=== PATIENT | female | born 1990 | race Caucasian/White ===

== ENCOUNTER → 2019-04-19 13:21 | Outpatient (CLI) | payer OTHER, SELFPAY | DX: Z23 Encounter for immunization (principal) | CPT/HCPCS: 90471; 90686 ==

== ENCOUNTER → 2019-05-20 15:40 | Outpatient (CLI) | payer OTHER, SELFPAY | PROVIDERS: Visit Provider Physician Assistant | DX: R30.0 Dysuria (principal) | CPT/HCPCS: 87086 ==

== ENCOUNTER → 2019-10-05 13:12 | Outpatient (CLI) | payer OTHER, SELFPAY ==
[2019-10-05 14:34] LABS: Add Manual Diff / Slide Review NO; Basophils Absolute Auto 0 /uL (0-100); Basophils Percent Auto 0.4 % (0-2); Eosinophils Absolute Auto 100 /uL (0-450); Eosinophils Percent Auto 1.4 % (2-4); Hematocrit 40.1 % (36-46); Hemoglobin 13.8 g/dL (12.0-16.0); Lymphocytes Absolute Auto 2200 /uL (1100-4500); Mean Corpuscular HGB Conc 34.3 % (30-36); Mean Corpuscular Volume 87.4 fL (80-100); Monocytes Absolute Auto 300 /uL (0-900); Monocytes Percent Auto 4.3 % (3-14); Neutrophils Absolute Auto 3800 /uL (1500-7000); Neutrophils Percent Auto 58.9 % (50-75); Platelet Count 218 X10^3/uL (150-400); Red Blood Cell Count 4.59 X10^6/uL (4.0-5.2); Red Cell Distribution Width 12.8 % (11.6-14.8); White Blood Cell Count 6.4 X10^3/uL (4.5-11.0)
[2019-10-05 14:59] LABS: Alanine Aminotransferase 28 IU/L (<35); Albumin 4.6 g/dL (3.5-5.0); Albumin Globulin Ratio 1.2 (1.0-2.8); Alkaline Phosphatase 75 U/L (38-126); Aspartate Aminotransferase 28 IU/L (14-36); BUN Creatinine Ratio 18.2 (6-22); Bilirubin Total 0.5 mg/dL (0.2-1.3); Blood Urea Nitrogen 14 mg/dL (7-17); Calcium 9.7 mg/dL (8.4-10.2); Carbon Dioxide 28 mmol/L (22-32); Chloride 102 mmol/L (98-107); Cholesterol 275 mg/dL (140-199); Estimated Glomerular Filt Rate > 60.0 mL/min (>60); Globulin 3.8 g/dL (1.7-4.1); Glucose 94 mg/dL (70-100); HDL Cholesterol 43 mg/dL (40-60); HEMOLYSIS < 15 (0-50); LDL Cholesterol Calculated 195 mg/dL (<100); Potassium 4.3 mmol/L (3.4-5.1); Sodium 138 mmol/L (137-145); Total Protein 8.4 g/dL (6.3-8.2); Triglycerides 187 mg/dL (35-150)
[2019-10-05 15:15] LABS: Free T4, Direct Thyroxine 0.88 ng/dL (0.78-2.19)
[2019-10-05 15:29] LABS: Thyroid Stimulating Hormone 2.73 uIU/mL (0.47-4.68)
== END ==
PROVIDERS: PCP Nurse Practitioner; Referring Provider Nurse Practitioner; Visit Provider Nurse Practitioner
DX: Z00.00 Encounter for general adult medical examination without abnormal findings (principal)
CPT/HCPCS: 36415; 80053; 80061; 84439; 84443; 84481; 85025

== ENCOUNTER → 2020-04-12 | Outpatient (CLI) | payer OTHER, SELFPAY | PROVIDERS: PCP Nurse Practitioner; Referring Provider Internal Medicine; Visit Provider Internal Medicine | DX: Z23 Encounter for immunization (principal) | CPT/HCPCS: 90471; 90686 ==

== ENCOUNTER → 2020-05-16 10:32 | Outpatient (CLI) | payer OTHER, SELFPAY ==
--- NOTE | 2020-05-16 10:34 | DI.US.S_ITS ---
LIMITED ULTRASOUND OF LEFT BREAST: 05/16/2020 CLINICAL: Skin changes. No prior exams were available for comparison. Color flow and real-time ultrasound of the left breast inner aspect were performed. Godinez scale images of the real-time examination were reviewed. No significant abnormalities were seen sonographically in the medial left breast in the region of mild erythema. Patient reports decrease in size of the skin changes. IMPRESSION: NEGATIVE There is no sonographic evidence of malignancy in the region of skin changes. Exam findings were conveyed to the patient. Patient is advised to monitor for significant change. Clinical follow-up as needed. If symptoms worsen dermatological consult could be considered. This exam was interpreted at Station ID: [id number]. Electronically Signed By: Ramsey Watts M.D. [facility] [place]/:05/16/2020 12:27:27 letter sent: Clinical Evaluation Ultrasound BI-RADS: 1 Negative
== END ==
PROVIDERS: PCP Nurse Practitioner; Referring Provider Registered Nurse; Visit Provider Registered Nurse
DX: R23.4 Changes in skin texture (principal); Z80.3 Family history of malignant neoplasm of breast
CPT/HCPCS: 76642

== ENCOUNTER → 2020-12-12 13:07 | Outpatient (CLI) | payer OTHER, SELFPAY ==
[2020-12-12 13:37] LABS: UR Morphine/Opiate cutoff 300 Negative (Negative); Ur Creatinine Normal (Normal); Ur Specific Gravity Normal (Normal); Urine Amphetamines Negative (Negative); Urine Barbiturates Negative (Negative); Urine Benzodiazepines Negative (Negative); Urine Cocaine Negative (Negative); Urine MDMA Negative (Negative); Urine Methadone Negative (Negative); Urine Methamphetamines Negative (Negative); Urine Oxycodone Negative (Negative); Urine Phencyclidine Negative (Negative); Urine Tetrahydrocannabinol Negative (Negative); Urine Tricyclic Antidepressant Negative (Negative); Urine pH Normal (Normal)
[2020-12-14 13:48] LABS: QuantiFERON Mitogen Value >10.00 IU/mL (.); QuantiFERON Nil Value <0.00 IU/mL (.); QuantiFERON TB Gold Plus Negative (Negative); QuantiFERON TB1 Ag Value 0.08 IU/mL (.); QuantiFERON TB2 Ag Value 0.15 IU/mL (.)
== END ==
PROVIDERS: PCP Nurse Practitioner; Referring Provider Student in an Organized Health Care Education/Training Program; Visit Provider Student in an Organized Health Care Education/Training Program
DX: Z01.84 Encounter for antibody response examination (principal); Z20.1 Contact with and (suspected) exposure to tuberculosis; Z02.1 Encounter for pre-employment examination
CPT/HCPCS: 36415; 80305; 86480

== ENCOUNTER → 2021-04-22 | Outpatient (CLI) | payer OTHER, SELFPAY | PROVIDERS: PCP Nurse Practitioner; Referring Provider Internal Medicine; Visit Provider Internal Medicine | DX: Z23 Encounter for immunization (principal) | CPT/HCPCS: 90471; 90686 ==

== ENCOUNTER → 2022-02-12 13:00 | Outpatient (CLI) | payer OTHER, SELFPAY ==
[2022-02-12 16:03] LABS: Alanine Aminotransferase 30 IU/L (<35); Albumin 4.5 g/dL (3.5-5.0); Albumin Globulin Ratio 1.3 (1.0-2.8); Alkaline Phosphatase 67 U/L (38-126); Aspartate Aminotransferase 35 IU/L (14-36); BUN Creatinine Ratio 14.8 (6-22); Bilirubin Total 0.8 mg/dL (0.2-1.3); Blood Urea Nitrogen 13 mg/dL (7-17); Calcium 9.1 mg/dL (8.4-10.2); Carbon Dioxide 29 mmol/L (22-32); Chloride 102 mmol/L (98-107); Cholesterol 203 mg/dL (140-199); Estimated Glomerular Filt Rate > 60 mL/min (>60); Globulin 3.6 g/dL (1.7-4.1); Glucose 87 mg/dL (70-100); HDL Cholesterol 44 mg/dL (40-60); HEMOLYSIS < 15 (0-50); LDL Cholesterol Calculated 137 mg/dL (<100); Sodium 139 mmol/L (137-145); Total Protein 8.1 g/dL (6.3-8.2); Triglycerides 108 mg/dL (35-150)
== END ==
PROVIDERS: PCP Nurse Practitioner; Referring Provider Nurse Practitioner; Visit Provider Nurse Practitioner
DX: E78.2 Mixed hyperlipidemia (principal); Z79.899 Other long term (current) drug therapy
CPT/HCPCS: 36415; 80053; 80061

== ENCOUNTER → 2022-05-05 15:41 | Outpatient (CLI) | payer OTHER, SELFPAY | PROVIDERS: PCP Nurse Practitioner; Referring Provider Internal Medicine; Visit Provider Internal Medicine | DX: Z23 Encounter for immunization (principal) | CPT/HCPCS: 90471; 90686 ==

== ENCOUNTER → 2023-01-29 11:03 | Outpatient (CLI) | payer OTHER, SELFPAY ==
[2023-01-29 13:39] LABS: Add Manual Diff / Slide Review NO; Basophils Absolute Auto 0 /uL (0-100); Basophils Percent Auto 0.4 % (0-2); Eosinophils Absolute Auto 100 /uL (0-450); Eosinophils Percent Auto 1.6 % (2-4); Hematocrit 38.2 % (36-46); Hemoglobin 13.2 g/dL (12.0-16.0); Lymphocytes Absolute Auto 2100 /uL (1100-4500); Lymphocytes Percent Auto 32.2 % (25-40); Mean Corpuscular HGB Conc 34.7 % (30-36); Mean Corpuscular Hemoglobin 30.2 PG (26-34); Mean Corpuscular Volume 86.9 fL (80-100); Monocytes Absolute Auto 300 /uL (0-900); Monocytes Percent Auto 4.6 % (3-14); Neutrophils Absolute Auto 4100 /uL (1500-7000); Neutrophils Percent Auto 61.2 % (50-75); Platelet Count 256 X10^3/uL (150-400); Red Blood Cell Count 4.39 X10^6/uL (4.0-5.2); Red Cell Distribution Width 12.7 % (11.6-14.8); White Blood Cell Count 6.7 X10^3/uL (4.5-11.0)
[2023-01-29 13:52] LABS: Alanine Aminotransferase 35 IU/L (<35); Albumin 4.6 g/dL (3.5-5.0); Albumin Globulin Ratio 1.4 (1.0-2.8); Alkaline Phosphatase 73 U/L (38-126); Aspartate Aminotransferase 31 IU/L (14-36); BUN Creatinine Ratio 20.2 (6-22); Bilirubin Total 0.4 mg/dL (0.2-1.3); Blood Urea Nitrogen 19 mg/dL (7-17); Calcium 9.3 mg/dL (8.4-10.2); Carbon Dioxide 25 mmol/L (22-32); Chloride 101 mmol/L (98-107); Cholesterol 227 mg/dL (140-199); Estimated Glomerular Filt Rate > 60 mL/min (>60); Globulin 3.3 g/dL (1.7-4.1); Glucose 90 mg/dL (70-100); HDL Cholesterol 45 mg/dL (40-60); HEMOLYSIS < 15 (0-50); LDL Cholesterol Calculated 152 mg/dL (<100); Potassium 4.2 mmol/L (3.4-5.1); Sodium 137 mmol/L (137-145); Total Protein 7.9 g/dL (6.3-8.2); Triglycerides 152 mg/dL (35-150)
[2023-01-29 13:58] LABS: Free T3, Triiodothyronine Free 4.51 pg/mL (2.77-5.27); Free T4, Direct Thyroxine 0.93 ng/dL (0.78-2.19)
[2023-01-29 14:11] LABS: Thyroid Stimulating Hormone 1.45 uIU/mL (0.47-4.68)
== END ==
PROVIDERS: PCP Nurse Practitioner; Referring Provider Nurse Practitioner; Visit Provider Nurse Practitioner
DX: Z00.00 Encounter for general adult medical examination without abnormal findings (principal); E78.2 Mixed hyperlipidemia; Z83.438 Family history of other disorder of lipoprotein metabolism and other lipidemia
CPT/HCPCS: 36415; 80053; 80061; 84439; 84443; 84481; 85025

== ENCOUNTER → 2023-02-02 11:43 | Outpatient (CLI) | payer OTHER, SELFPAY ==
--- NOTE | 2023-02-02 11:45 | DI.RAD.S_ITS ---
PROCEDURE: XR LUMBAR SPINE 2-3V INDICATIONS: low back/sacral pain TECHNIQUE: 3 views of the lumbar spine were acquired. COMPARISON: None. FINDINGS: Bones: 5 [id number] vertebrae are present. There is normal bony alignment. Mild disc height loss at L5-S1. No vertebral body compression fractures. No suspicious bony lesions. Soft tissues: Overlying bowel gas pattern is normal. No suspicious soft tissue calcifications. IMPRESSION: Mild disc height loss at L5-S1. Otherwise unremarkable study. Dictated by: Shun Cantrell M.D. on 02/02/2023 at 14:17 Approved by: Shun Cantrell M.D. on 02/02/2023 at 14:18
--- NOTE | 2023-02-02 11:45 | DI.RAD.S_ITS ---
PROCEDURE: XR SACRUM COCCYX MIN 2V INDICATIONS: low back/sacral pain TECHNIQUE: 3 views of the sacrum and coccyx acquired. COMPARISON: None. FINDINGS: Bones: No fractures or dislocations. No suspicious bony lesions. Soft tissues: Visualized bowel gas pattern is normal. No suspicious soft tissue densities. IMPRESSION: No acute bony abnormality. Dictated by: Shun Cantrell M.D. on 02/02/2023 at 14:18 Approved by: Shun Cantrell M.D. on 02/02/2023 at 14:18
== END ==
PROVIDERS: PCP Nurse Practitioner; Referring Provider Nurse Practitioner; Visit Provider Nurse Practitioner
DX: M53.3 Sacrococcygeal disorders, not elsewhere classified (principal); M54.50 Low back pain, unspecified
CPT/HCPCS: 72100; 72220

== ENCOUNTER → 2023-04-29 15:37 | Outpatient (CLI) | payer OTHER, SELFPAY | PROVIDERS: PCP Nurse Practitioner; Referring Provider Family Medicine; Visit Provider Family Medicine | DX: Z23 Encounter for immunization (principal) | CPT/HCPCS: 90471; 90686 ==

== ENCOUNTER → 2023-05-06 12:13 | Outpatient (CLI) | payer OTHER, SELFPAY ==
[2023-05-06 13:41] LABS: Alanine Aminotransferase 27 IU/L (<35); Albumin 4.5 g/dL (3.5-5.0); Albumin Globulin Ratio 1.2 (1.0-2.8); Alkaline Phosphatase 59 U/L (38-126); Aspartate Aminotransferase 34 IU/L (14-36); BUN Creatinine Ratio 20.5 (6-22); Bilirubin Total 0.5 mg/dL (0.2-1.3); Blood Urea Nitrogen 15 mg/dL (7-17); Calcium 9.7 mg/dL (8.4-10.2); Carbon Dioxide 28 mmol/L (22-32); Chloride 102 mmol/L (98-107); Cholesterol 289 mg/dL (140-199); Estimated Glomerular Filt Rate > 60 mL/min (>60); Globulin 3.7 g/dL (1.7-4.1); Glucose 89 mg/dL (70-100); HDL Cholesterol 52 mg/dL (40-60); HEMOLYSIS < 15 (0-50); LDL Cholesterol Calculated 186 mg/dL (<100); Potassium 4.3 mmol/L (3.4-5.1); Sodium 137 mmol/L (137-145); Total Protein 8.2 g/dL (6.3-8.2); Triglycerides 257 mg/dL (35-150)
== END ==
PROVIDERS: PCP Nurse Practitioner; Referring Provider Nurse Practitioner; Visit Provider Nurse Practitioner
DX: E78.2 Mixed hyperlipidemia (principal); Z79.899 Other long term (current) drug therapy
CPT/HCPCS: 36415; 80053; 80061

== ENCOUNTER 2023-05-17 03:23 | Emergency (ER) | payer OTHER, SELFPAY ==
[2023-05-17 03:30] VITALS: BP 128/58; PULSE 73; RESP 20; TEMP 37.8; O2SAT 98; BMI 25.8
--- NOTE | 2023-05-17 03:40 | ED.GENADULT ---
HPI - General Adult General Chief complaint: Fever Stated complaint: FEVER/INTENSE HEADACHE Time Seen by Provider: 05/17/23 03:30 Source: patient Mode of arrival: Ambulatory History of Present Illness HPI narrative: 33-year-old otherwise healthy female who is here for evaluation of a headache and fever. No neck pain. No cough. No sore throat. Symptoms have been present for the past 4 days. Has tried home treatments to include fluids and nonsteroidal anti-inflammatories and Tylenol. She is photophobic. Also has sensitivity to sound. Is having nausea but no vomiting. She states that her symptoms were fairly sudden onset 4 days ago. She has no neck pain. Related Data Previous Rx's Medication Instructions Recorded tretinoin 0.1 % topical cream 1 applic topical BEDTIME #45 grams 11/20/21 spironolactone 50 mg tablet 50 mg PO DAILY #90 tabs 12/01/22 cyclobenzaprine 5 mg tablet 5 mg PO TID PRN muscle spasm #30 02/04/23 tabs fluconazole 150 mg tablet 150 mg PO Q3D 2 doses #2 tabs 02/04/23 rosuvastatin 10 mg tablet 10 mg PO DAILY #90 tabs 02/04/23 Allergies Allergy/AdvReac Type Severity Reaction Status Date / Time No Known Drug Allergies Allergy Verified 02/04/23 10:58 Review of Systems Constitutional Constitutional: Reports system reviewed and no additional complaints, except as documented ENT Ears, Nose, Mouth, and Throat: Reports system reviewed and no additional complaints, except as documented Respiratory Respiratory: Reports system reviewed and no additional complaints, except as documented Gastrointestinal Gastrointestinal: Reports system reviewed and no additional complaints, except as documented Integumentary/Breasts Skin/Breast: Reports system reviewed and no additional complaints, except as documented Neurologic Neurologic: Reports system reviewed and no additional complaints, except as documented Allergic/Immunologic Allergic/Immunologic: Reports system reviewed and no additional complaints, except as documented Patient History Medical History (Updated 05/17/23 @ 05:45 by Cedric Dee DO) Family history of hyperlipidemia Family history of premature CAD Unwanted fertility Mixed hyperlipidemia Family History Father Diabetes mellitus History of heart disease Mother History of heart disease Hyperlipidemia Endometrial cancer Grandfather No problems noted. Grandmother History of heart disease Hypertension Grandfather Cancer Grandmother Cancer History of heart disease Hyperlipidemia Hypertension Stroke Social History Smoking Status: Never smoker Smoking Status: Never smoker alcohol intake frequency: a few times a month Substance Use Type: does not use Exam Initial Vital Signs Initial Vital Signs: Vital Signs Temperature 100.1 F H 05/17/23 03:30 Pulse Rate 73 05/17/23 03:30 Respiratory Rate 20 05/17/23 03:30 Blood Pressure 128/58 L 05/17/23 03:30 Pulse Oximetry 98 05/17/23 03:30 Oxygen Delivery Method Room Air 05/17/23 03:30 Const General: healthy appearing HENMT Head: normal to inspection and normocephalic Ears: TM's normal bilaterally Mouth: moist mucous membranes Neck Neck: no meningeal signs Resp Effort & Inspection: normal respiratory effort Cardio Rate: regular rate Neuro General: patient alert, patient awake and moves all extremities Cognition: normal cognition Speech: speech normal Course Orders Ordered: ED Orders 05/17/23 03:43 Basic Metabolic Panel Stat Complete Blood Count AUTO DIFF Stat Covid-19 + FLU A/B + RSV - PCR Stat Test Serum,Qual Stat 05/17/23 04:49 CT head/brain wo con Stat Discontinued Medications Diphenhydramine HCl (Diphenhydramine 50 Mg/Ml Vial) 25 mg IV NOW ONE Stop: 05/17/23 03:40 Last Admin: 05/17/23 03:52 Dose: 25 mg Documented By: SB Sodium Chloride (Normal Saline 0.9%) 1,000 mls @ 1,000 mls/hr IV BOLUS ONE Stop: 05/17/23 04:33 Last Infusion: 05/17/23 04:53 Dose: Infused Documented By: Admin: 05/17/23 03:52 Dose: 1,000 mls/hr Documented By: SB Ketorolac Tromethamine (Ketorolac 30 Mg/Ml Vial) 30 mg IV NOW ONE Stop: 05/17/23 03:40 Last Admin: 05/17/23 03:52 Dose: 30 mg Documented By: SB Methylprednisolone (Methylprednisolone 125 Mg/2 Ml Vial) 125 mg IV NOW ONE Stop: 05/17/23 05:45 Last Admin: 05/17/23 05:55 Dose: 125 mg Documented By: ES Metoclopramide HCl (Metoclopramide 10 Mg/2 Ml Inj) 10 mg IV NOW ONE Stop: 05/17/23 03:40 Last Admin: 05/17/23 03:53 Dose: 10 mg Documented By: JUAN Vital Signs Vital signs: Vital Signs - 8 hr 05/17/23 03:30 05/17/23 03:52 05/17/23 04:53 Temperature 100.1 F H 100.1 F H 99.2 F Pulse Rate 73 Respiratory Rate 20 Blood Pressure 128/58 L Pulse Oximetry 98 Oxygen Delivery Method Room Air 05/17/23 06:08 Temperature 98 F Pulse Rate Respiratory Rate Blood Pressure Pulse Oximetry Oxygen Delivery Method Medical Decision Making Lab Data Lab results reviewed: Yes I reviewed the patient's lab results. 05/17/23 03:43 05/17/23 03:43 Labs: Lab Results 05/17/23 Range/Units 03:43 WBC 4.7 (4.5-11.0) X10^3/uL RBC 3.71 L (4.0-5.2) X10^6/uL Hgb 11.6 L (12.0-16.0) g/dL Hct 32.5 L (36-46) % MCV 87.7 (80-100) fL MCH 31.2 (26-34) PG MCHC 35.6 (30-36) % RDW 13.0 (11.6-14.8) % Plt Count 167 (150-400) X10^3/uL Neut % (Auto) 67.2 (50-75) % Lymph % (Auto) 20.9 L (25-40) % Montgomery % (Auto) 8.9 (3-14) % Eos % (Auto) 2.3 (2-4) % Baso % (Auto) 0.7 (0-2) % Neut # (Auto) 3200 (3697-1752) /uL Lymph # (Auto) 1000 L (6552-6988) /uL Montgomery # (Auto) 400 (0-900) /uL Eos # (Auto) 100 (0-450) /uL Baso # (Auto) 0 (0-100) /uL Sodium 135 L (137-145) mmol/L Potassium 3.9 (3.4-5.1) mmol/L Chloride 105 (98-107) mmol/L Carbon Dioxide 24 (22-32) mmol/L BUN 11 (7-17) mg/dL Creatinine 0.68 (0.52-1.04) mg/dL Estimated GFR > 60 (>60) mL/min BUN/Creatinine Ratio 16.2 (6-22) Glucose 123 H (70-100) mg/dL Calcium 8.4 (8.4-10.2) mg/dL Serum , Qual Negative (Negative) SARS-CoV-2 (PCR) Negative (Negative) Influenza A (RT-PCR) Flu a negative (NEGATIVE) Influenza B (RT-PCR) Flu b negative (NEGATIVE) RSV (PCR) Negative (Negative) Imaging Data CT scan - head: Radiologist's Impression: No acute intracranial abnormality. Left maxillary sinus disease MDM Narrative Medical decision making narrative: Patient did have a fever. No nuchal rigidity. Her labs are unremarkable. Does not have leukocytosis. Flu/COVID/RSV negative. Did have a fairly sudden onset of a headache 4 days ago. There is somewhat of a mixed picture given the sudden onset of the headache in the photophobia in the lack of a history of headaches would be concerning for subarachnoid hemorrhage however subarachnoid hemorrhage would not necessarily produce a fever. This is also in the setting where the patient does have a negative COVID and flu which if were positive would certainly explain her symptoms. I do feel that head CT is warranted evaluate for subarachnoid which was subsequently negative. Given her presentation today I do feel that a subarachnoid hemorrhage is unlikely specifically given the fever that she is having. We discussed lumbar puncture however after discussion of risks and benefits we will hold on the lumbar puncture for now for evaluation of subarachnoid. We also discussed lumbar puncture for evaluation of meningitis. She is no meningeal symptoms. No nuchal rigidity. My suspicion for meningitis is low as well. Again after discussion we will hold on lumbar puncture for evaluation of meningitis. Patient states she does feel better after treatment. Will discharge patient home. Patient understands return precautions. Discharge Plan Departure Patient Disposition: Home Clinical Impression: Headache, Fever Instructions: DI for Headache Activity Restrictions/Additional Instructions: You can take Tylenol or ibuprofen as needed. Other decongestants can be helpful as well. Return to the emergency department for worsening symptoms. Prescriptions: No Action spironolactone 50 mg tablet 50 mg PO DAILY Qty: 90 3RF Rx Instructions: Take 1 tab daily for dermatology concerns. tretinoin 0.1 % cream 1 applic topical BEDTIME Qty: 45 3RF Rx Instructions: Apply to areas of face as directed cyclobenzaprine 5 mg tablet 5 mg PO TID PRN (Reason: muscle spasm) Qty: 30 1RF Rx Instructions: Take 1 tab by mouth 3x/day as needed rosuvastatin 10 mg tablet 10 mg PO DAILY Qty: 90 3RF Rx Instructions: Take 1 tab by mouth daily fluconazole 150 mg tablet 150 mg PO Q3D Qty: 2 1RF Rx Instructions: Take 1 tab by mouth daily every 72 hours (3 days) x2 doses Referrals: Michelle Esposito ARNP [Primary Care Provider] - Stand Alone Forms: Patient Portal/API
[2023-05-17 03:51] LABS: Add Manual Diff / Slide Review NO; Basophils Absolute Auto 0 /uL (0-100); Basophils Percent Auto 0.7 % (0-2); Eosinophils Absolute Auto 100 /uL (0-450); Eosinophils Percent Auto 2.3 % (2-4); Hematocrit 32.5 % (36-46); Hemoglobin 11.6 g/dL (12.0-16.0); Lymphocytes Absolute Auto 1000 /uL (1100-4500); Lymphocytes Percent Auto 20.9 % (25-40); Mean Corpuscular HGB Conc 35.6 % (30-36); Mean Corpuscular Hemoglobin 31.2 PG (26-34); Mean Corpuscular Volume 87.7 fL (80-100); Monocytes Absolute Auto 400 /uL (0-900); Monocytes Percent Auto 8.9 % (3-14); Neutrophils Absolute Auto 3200 /uL (1500-7000); Neutrophils Percent Auto 67.2 % (50-75); Platelet Count 167 X10^3/uL (150-400); Red Blood Cell Count 3.71 X10^6/uL (4.0-5.2); White Blood Cell Count 4.7 X10^3/uL (4.5-11.0)
[2023-05-17 03:52] VITALS: TEMP 37.8
[2023-05-17] MEDS: SODIUM CHLORIDE 0.9% 1,000 ML 1000 ML IV (03:52)
[2023-05-17] MEDS: diphenhydrAMINE 50 MG/ML VIAL 25 MG IV (03:52)
[2023-05-17] MEDS: KETOROLAC 30 MG/ML VIAL IV (03:52)
[2023-05-17] MEDS: METOCLOPRAMIDE 10 MG/2 ML INJ IV (03:53)
[2023-05-17 04:16] LABS: BUN Creatinine Ratio 16.2 (6-22); Blood Urea Nitrogen 11 mg/dL (7-17); Calcium 8.4 mg/dL (8.4-10.2); Carbon Dioxide 24 mmol/L (22-32); Chloride 105 mmol/L (98-107); Estimated Glomerular Filt Rate > 60 mL/min (>60); Glucose 123 mg/dL (70-100); HEMOLYSIS < 15 (0-50); Potassium 3.9 mmol/L (3.4-5.1); Pregnancy Test Serum,Qual Negative (Negative); Sodium 135 mmol/L (137-145)
[2023-05-17 04:41] LABS: Influenza A - CEPHEID Flu A NEGATIVE (NEGATIVE); Influenza B - CEPHEID Flu B NEGATIVE (NEGATIVE); Respiratory Syncytial Virus Negative (Negative)
[2023-05-17 04:42] LABS: COVID-19 CEPHEID 4-PLEX PCR Negative (Negative)
--- NOTE | 2023-05-17 04:49 | DI.CT.S_ITS ---
PROCEDURE: CT HEAD/BRAIN WO CON INDICATIONS: sudden onset headache eval for SAH TECHNIQUE: Noncontrast 4.5 mm thick angled axial sections acquired from the foramen magnum to the vertex, with coronal and sagittal reformats. For radiation dose reduction, the following was used: automated exposure control, adjustment of mA and/or kV according to patient size. COMPARISON: None. FINDINGS: Image quality: Excellent. CSF spaces: Basal cisterns are patent. No extra-axial fluid collections. Ventricles are normal in size and shape. Brain: No midline shift. No intracranial masses or hemorrhage. Godinez-white matter interface is normal. Skull and face: Calvarium and visualized facial bones are intact, without suspicious lesions. Sinuses: Trace mucosal thickening in the medial left maxillary sinus. Visualized sinuses and mastoids are otherwise clear. IMPRESSION: 1. No CT evidence of acute intracranial process. 2. Final interpretation is concordant with preliminary report. Dictated by: Francesca Brush M.D. on 05/17/2023 at 8:06 Approved by: Francesca Brush M.D. on 05/17/2023 at 8:07
[2023-05-17 04:53] VITALS: TEMP 37.3
[2023-05-17] MEDS: methylPREDNISolone 125 MG/2 ML VIAL IV (05:55)
[2023-05-17 06:08] VITALS: TEMP 36.6
== END 2023-05-17 06:10 | disposition home or self-care (01) ==
PROVIDERS: Emergency Provider Emergency Medicine; PCP Nurse Practitioner
DX: R51.9 Headache, unspecified (principal); R50.9 Fever, unspecified; Z20.822 Contact with and (suspected) exposure to COVID-19
CPT/HCPCS: 0241U; 36415; 70450; 80048; 84703; 85025; 96361; 96374; 96375; 99284; J1200; J1885; J2765; J2930

== ENCOUNTER → 2024-04-22 17:47 | Outpatient (CLI) | payer OTHER, SELFPAY | PROVIDERS: PCP Student in an Organized Health Care Education/Training Program; Referring Provider Internal Medicine; Visit Provider Internal Medicine | DX: Z23 Encounter for immunization (principal) | CPT/HCPCS: 90471; 90656 ==

== ENCOUNTER → 2024-04-28 09:17 | Outpatient (CLI) | payer OTHER, SELFPAY ==
--- NOTE | 2024-04-28 09:30 | DI.US.S_ITS ---
PROCEDURE: US PELVIC COMPLETE INDICATIONS: FREQUENT HEAVY MENSES. MATERNAL HISTORY OF UTERINE CANCER TECHNIQUE: Real-time scanning was performed of the pelvic organs, with image documentation. Additional endovaginal scanning was necessary due to incomplete visualization of the adnexal and endometrial structures by transabdominal scanning. COMPARISON: None. FINDINGS: Uterus: Uterus is anteverted and normal in size at 7.9 x 4.8 x 3.9 cm. The myometrium is predominantly homogeneous. In the posterior midbody myometrium, there is a vague area of heterogeneous echotexture measuring 1.7 x 1.1 cm. The endometrium measures 11.8 mm combined thickness. Normal vascularity in the endometrium. Ovaries: The right ovary measures 4.4 x 3.3 x 2.2 cm, with a calculated ovarian volume of 16.7 cc. The left ovary measures 2.2 x 1.1 x 2.1 cm, with a calculated ovarian volume of 2.7 cc. The ovaries have a normal sonographic appearance. There is a thick-walled vascular involuting follicle within the right ovary measuring 2.0 cm. No adnexal masses are seen. Other: No pathologic free abdominal or pelvic fluid. IMPRESSION: Normal size uterus with probable ill-defined fibroid in the posterior myometrium versus focal adenomyosis. Right ovarian corpus luteum. We strive to produce accurate, complete, and clear reports of imaging services. To assist us in improving patient care, this report was composed using standard report templates and voice recognition software. Therefore, it may contain abnormal punctuation, insertions and/or omissions. Occasional wrong-word or sound-alike substitutions may occur. Though we review the report and make efforts to correct it, we do recommend that the report be read carefully in proper context to recognize any text inaccuracies. Dictated by: Francesca Brush M.D. on 04/28/2024 at 15:18 Approved by: Francesca Brush M.D. on 04/28/2024 at 15:24
== END ==
PROVIDERS: PCP Student in an Organized Health Care Education/Training Program; Referring Provider Student in an Organized Health Care Education/Training Program; Visit Provider Student in an Organized Health Care Education/Training Program
DX: N92.0 Excessive and frequent menstruation with regular cycle (principal); N83.11 Corpus luteum cyst of right ovary
CPT/HCPCS: 76830; 76856

== ENCOUNTER → 2024-05-23 07:57 | Outpatient (CLI) | payer OTHER, SELFPAY ==
--- NOTE | 2024-05-23 07:58 | DI.MRI.S_ITS ---
PROCEDURE: MR PELVIS WO/W CON INDICATIONS: possible fibroid vs adenomyosis TECHNIQUE: Coronal HASTE, sagittal breath-hold T2 FSE; axial T1 FSE with and without fat saturation through the pelvis. Optional long- and short-axis uterine nonbreath-hold T2 FSE through the uterus. Sagittal or axial dynamic VIBE during administration of contrast. Post-contrast axial or coronal VIBE/2-D FLASH with fat saturation from the iliac crests to the symphysis. Optional diffusion weighted imaging and ADC may be performed. COMPARISON: [facility], , PELVIC COMPLETE, 04/28/2024, 9:31. FINDINGS: Image quality: Excellent. Uterus: Uterus is normal in size. Endometrium is normal in thickness. Ill-defined lesion with T2 hyperintense cystic spaces within the junctional zone of the posterior mid uterus, measuring 1.7 x 1.1 cm. Adnexa: Both ovaries are normal in size, without suspicious cystic or solid lesions. Right-sided corpus luteum. Urinary system: Bladder wall is normal in thickness. Distal ureters are non distended. Urethra appears normal in morphology. Nodes and vessels: No pelvic or inguinal adenopathy by size criteria. Iliac vessels are normal in size. Bowel and peritoneum: No pathologic free pelvic fluid. Inferior colon and small bowel loops are normal in caliber. Soft tissues: No inguinal hernias. No findings of pelvic floor incompetence in the absence of provocation. Bones: Marrow demonstrates normal overall signal. Broad-based disc bulge at L5-S1, without significant spinal canal narrowing. IMPRESSION: 1.7 x 1.1 cm focal adenomyosis of the transition zone of the mid uterine segment. Dictated by: Srikanth Mooney M.D. on 05/23/2024 at 12:04 Approved by: Srikanth Mooney M.D. on 05/23/2024 at 12:13
== END ==
PROVIDERS: PCP Student in an Organized Health Care Education/Training Program; Referring Provider Student in an Organized Health Care Education/Training Program; Visit Provider Student in an Organized Health Care Education/Training Program
DX: D21.9 Benign neoplasm of connective and other soft tissue, unspecified (principal); N80.03 Adenomyosis of the uterus
CPT/HCPCS: 72197; A9579

== ENCOUNTER → 2024-06-22 13:50 | Outpatient (CLI) | payer OTHER, SELFPAY ==
[2024-06-22 17:14] LABS: Follicle Stimulating Hormone 2.77 mIU/mL
[2024-06-30 21:10] LABS: Testosterone % Fr + Wkly bound 12.2 % (3.0-18.0); Testosterone Fr+Wkly bound 1.7 ng/dL (0.0-9.5); Testosterone, Total 14.3 ng/dL (10.0-55.0)
[2024-07-01 17:36] LABS: Free Progesterone 24 ng/dL (.); Progesterone, Serum 1210 ng/dL (.)
== END ==
PROVIDERS: PCP Student in an Organized Health Care Education/Training Program; Referring Provider Obstetrics & Gynecology; Visit Provider Obstetrics & Gynecology
DX: N93.9 Abnormal uterine and vaginal bleeding, unspecified (principal)
CPT/HCPCS: 36415; 82627; 83001; 83036; 83498; 84144; 84403; 84999

== ENCOUNTER → 2024-09-16 08:40 | Outpatient (CLI) | payer OTHER, SELFPAY ==
--- NOTE | 2024-09-16 08:41 | DI.MRI.S_ITS ---
PROCEDURE: MR LUMBAR SPINE WO CON INDICATIONS: Hx of decompressive lumbar laminectomy, low back pain TECHNIQUE: Noncontrast sagittal T1 spin echo and T2 fast echo, sagittal STIR, and T2 fast spin echo through the lumbar spine. In cases with scoliosis, additional coronal T2 fast spin echo may be performed. COMPARISON: None. FINDINGS: Image quality: Excellent. Alignment and Curvature: Straightening of the normal lumbar lordosis. Bone Marrow: Degenerative endplate changes at L5-S1. Marrow is of normal overall signal. No acute vertebral body compression fractures. Spinal Cord: Conus medullaris terminates at the 1 L1 level. Visualized cord demonstrates normal signal and size. Paraspinous Soft Tissues: No paravertebral masses. T12-L1: Normal appearance. L1-L2: Normal appearance. L2-L3: Normal appearance. L3-L4: Normal appearance. L4-L5: Normal appearance. L5-S1: Status post left hemilaminotomy. Disc desiccation and moderate height loss. Diffuse disc bulge with superimposed left paracentral disc protrusion and posterior annular tear. Mild abutment of the descending left S1 nerve roots. Extension of disc bulge into the bilateral neural foramina results in mild neural foraminal stenosis without nerve root impingement. No central canal stenosis. IMPRESSION: Focal degenerative changes at L5-S1 as described above without significant central canal or neural foraminal stenosis. Dictated by: Sher Jim M.D. on 09/16/2024 at 9:54 Approved by: Sher Jim M.D. on 09/16/2024 at 9:57
== END ==
LOC: MRI 08:40
PROVIDERS: PCP Student in an Organized Health Care Education/Training Program; Referring Provider Family Medicine; Visit Provider Family Medicine
DX: M51.27 Other intervertebral disc displacement, lumbosacral region (principal); M51.370 Other intervertebral disc degeneration, lumbosacral region with discogenic back pain only; M47.817 Spondylosis without myelopathy or radiculopathy, lumbosacral region; M48.07 Spinal stenosis, lumbosacral region; Z98.890 Other specified postprocedural states
CPT/HCPCS: 72148

== ENCOUNTER → 2024-11-22 07:18 | Outpatient (CLI) | payer OTHER, SELFPAY ==
[2024-11-22 09:09] LABS: Vitamin D 25 Hydroxy (D3) 61.6 ng/mL (30.0-100.0)
== END ==
LOC: LAB 07:20
PROVIDERS: PCP Student in an Organized Health Care Education/Training Program; Referring Provider Student in an Organized Health Care Education/Training Program; Visit Provider Student in an Organized Health Care Education/Training Program
DX: Z13.21 Encounter for screening for nutritional disorder (principal)
CPT/HCPCS: 36415; 82306

== ENCOUNTER → 2024-12-06 15:32 | Outpatient (CLI) | payer OTHER, SELFPAY ==
[2024-12-08 12:36] LABS: Candida species Negative (Negative); Gardnerella vaginalis Negative (Negative); Trichomoas vaginalis Negative (Negative)
== END ==
PROVIDERS: PCP Student in an Organized Health Care Education/Training Program; Visit Provider Obstetrics & Gynecology
DX: N89.8 Other specified noninflammatory disorders of vagina (principal)
CPT/HCPCS: 87480; 87510; 87660